=== PATIENT | female | born 1955 | race Caucasian/White ===

== ENCOUNTER → 2021-07-11 09:43 | Outpatient (CLI) | payer MEDICARE, OTHER, SELFPAY ==
--- NOTE | 2021-07-11 09:51 | DI.US.S_ITS ---
PROCEDURE: US ABD AORTA ANEURYSM SCREEN INDICATIONS: SCREENING TECHNIQUE: Real time scanning was performed of the aorta and iliac arteries, with image documentation. COMPARISON: None. FINDINGS: Aorta: Proximal aortic diameter measures 1.6 cm. Mid-aorta measures 1.2 cm. Distal aortic diameter is 1.2 cm. Iliac arteries: Right common iliac artery measures 0.8 cm. Left common iliac artery measures 0.8 cm. IMPRESSION: No abdominal aortic aneurysm. Dictated by: Michael Marshall M.D. on 07/11/2021 at 11:17 Approved by: Michael Marshall M.D. on 07/11/2021 at 11:18
--- NOTE | 2021-07-11 09:51 | DI.RAD.S_ITS ---
PROCEDURE: XR DEXA AXIAL SKELETON INDICATIONS: ROUTINE SCREENING,AAA,OSTENOPENIA COMPARISON: [facility], CR, DEXA AXIAL SKELETON, 08/31/2016, 15:23. FINDINGS: This blank DEXA report has been sent in error by the PACS system. The correct and complete report will be forthcoming in 1-2 days. Thank you for your patience and understanding. Dictated by: Carolynn Peña MD, PhD on 07/11/2021 at 16:25 Approved by: Carolynn Peña MD, PhD on 07/11/2021 at 16:25
--- NOTE | 2021-07-11 10:18 | DI.MG.S_ITS ---
Procedure: MM screening mammo BI BILATERAL DIGITAL SCREENING MAMMOGRAM 3D/2D WITH CAD: 07/11/2021 CLINICAL: Routine screening. No prior exams were available for comparison. There are scattered fibroglandular elements in both breasts. Current study was also evaluated with a Computer Aided Detection (CAD) system. There is an irregular equal density focal asymmetry in the left breast at 1 o'clock posterior depth. There is possible architectural distortion associated with the focal asymmetry. No other significant masses, calcifications, or other findings are seen in either breast. IMPRESSION: INCOMPLETE: NEEDS ADDITIONAL IMAGING EVALUATION The irregular equal density focal asymmetry in the left breast is indeterminate. Additional views with possible ultrasound are recommended. This exam was interpreted at Station ID: [id number]. NOTE: For mammograms, a report in lay terms will be sent to the patient. Approximately 15% of breast malignancies will not be visualized mammographically. In the management of a palpable breast mass, a negative mammogram must not discourage biopsy of a clinically suspicious lesion. Electronically Signed By: Jules Pink M.D. aty/:07/11/2021 11:01:52 letter sent: Additional Imaging Needed ACR BI-RADS Category 0: Incomplete 3340F Continued Report - Page 2 of 2 Patient Name: CAMI WHITLEY date: 1955 Sex: F Attending Physician: Storm Indications: Date: 07/11/2021 10:04 At the request of: MARY ELENA Procedure: MM screening mammo BI
== END ==
PROVIDERS: Family Provider Nurse Practitioner; PCP Nurse Practitioner Family; Referring Provider Nurse Practitioner Family; Visit Provider Nurse Practitioner Family
DX: Z13.6 Encounter for screening for cardiovascular disorders (principal); M85.852 Other specified disorders of bone density and structure, left thigh; Z78.0 Asymptomatic menopausal state
CPT/HCPCS: 76706; 77063; 77067; 77080

== ENCOUNTER → 2021-08-01 13:10 | Outpatient (CLI) | payer MEDICARE, OTHER, SELFPAY ==
--- NOTE | 2021-08-01 | DI.US.S_ITS ---
ULTRASOUND OF LEFT BREAST AND AXILLA: 08/01/2021 CLINICAL: Patient returns today to evaluate an asymmetry in the left breast. Comparison is made to exams dated: 08/01/2021 mammogram and 07/11/2021 mammogram - [facility]. Color flow and real-time ultrasound of the left breast axilla were performed. Carrillo scale images of the real-time examination were reviewed. There is a 0.8 cm x 0.8 cm x 0.7 cm irregular mass with angular margins in the left breast at 2 o'clock posterior depth 7 cm from the nipple. This irregular mass is hypoechoic with no posterior acoustic shadowing or enhancement. This correlates with mammography findings. Color flow imaging demonstrates that there is vascularity present. No significant abnormalities were seen sonographically in the left axilla. IMPRESSION: SUSPICIOUS OF MALIGNANCY The 0.8 cm x 0.8 cm x 0.7 cm irregular mass in the left breast 2 o'clock position is suspicious of malignancy. An ultrasound guided biopsy is recommended. Findings and recommendations were discussed with the patient by Dr. Machado during today's examination. This exam was interpreted at Station ID: [id number]. Electronically Signed By: Jules Pink M.D. aty/:08/01/2021 15:12:49 letter sent: Biopsy Required Ultrasound BI-RADS: 4 Suspicious for malignancy
--- NOTE | 2021-08-01 | DI.MG.S_ITS ---
UNILATERAL LEFT DIGITAL DIAGNOSTIC MAMMOGRAM 3D/2D WITH ADDITIONAL VIEWS: 08/01/2021 CLINICAL: Additional evaluation requested from prior study. Comparison is made to exam dated: 07/11/2021 [facility]. There are scattered fibroglandular elements in left breast. Redemonstration of previously described 0.7 cm irregular equal density focal asymmetry in the left breast at 1 o'clock posterior depth. This is confirmed in today's additional views. There is architectural distortion associated with the focal asymmetry. No other significant masses or calcifications are seen in the breast. IMPRESSION: INCOMPLETE: NEEDS ADDITIONAL IMAGING EVALUATION The 0.7 cm irregular equal density focal asymmetry in the left breast is indeterminate. An ultrasound is recommended for further evaluation and is scheduled to immediately follow this examination. This exam was interpreted at Station ID: [id number]. NOTE: For mammograms, a report in lay terms will be sent to the patient. Approximately 15% of breast malignancies will not be visualized mammographically. In the management of a palpable breast mass, a negative mammogram must not discourage biopsy of a clinically suspicious lesion. Electronically Signed By: Jules Pink M.D. aty/:08/01/2021 15:07:18 ACR BI-RADS Category 0: Incomplete 3340F
== END ==
PROVIDERS: Family Provider Nurse Practitioner; PCP Nurse Practitioner Family; Referring Provider Nurse Practitioner Family; Visit Provider Nurse Practitioner Family
DX: R92.8 Other abnormal and inconclusive findings on diagnostic imaging of breast (principal); N63.21 Unspecified lump in the left breast, upper outer quadrant
CPT/HCPCS: 76642; 77065; G0279

== ENCOUNTER → 2021-08-30 10:43 | Outpatient (CLI) | payer MEDICARE, OTHER, SELFPAY ==
--- NOTE | 2021-08-30 | PATH_ITS ---
[facility] Accession Number: [id number] No. of containers..01 Tissue . 01 Material submitted: . breast - LEFT BREAST MASS 2:00 7CMFN . 01 Clinical history: . LEFT BREAST CANCER . 02 Diagnosis: Left Breast Mass, 2 o'clock, 7 cm From Nipple, Needle Core Biopsies: Invasive ductal carcinoma; see Cancer Case Summary. . CANCER CASE SUMMARY - INVASIVE CARCINOMA OF THE BREAST Procedure: Needle biopsy. Specimen laterality: Left. Tumor Tumor site: 2 o'clock, 7 cm from nipple. Histologic type: Invasive carcinoma of no special type (ductal). Histologic grade ([place] histologic score): Tubular differentiation: Score 3. Nuclear pleomorphism: Score 2. Mitotic rate: Score 1. Overall grade: Grade 2. Tumor size: 6 mm in greatest linear extent. Ductal carcinoma in situ: Present. Architectural pattern: [place], cribriform. Nuclear grade: Grade 2. Necrosis: Present, central (expansive comedo necrosis). Lymphovascular invasion: Not identified. Microcalcifications: Not identified. . CAP BREAST BIOMARKER REPORTING TEMPLATE: . Estrogen Receptor (ER) Status: Positive. Average intensity of stainin%, strong. Primary antibody: SP1 Progesterone Receptor (PgR) Status: Positive. Average intensity of stainin%, intermediate. Primary antibody: 1E2 HER2 (by immunohistochemistry): Negative (1+). Primary antibody: 4B5 . Cold Ischemia and Fixation Times: Meets requirements in the latest version of the ASCO/CAP guidelines. Testing performed on Block Number: . TECHNICAL NOTE: The scoring criteria for breast biomarkers by immunohistochemistry is based on the current ASCO/CAP guidelines (Donna et al, Arch Pathol Lab Med 2010: 134(6): 907-922 / Reena Carbajal al, Arch Pathol Lab Med 2014: 138(2): 241-256). Deparaffinized sections of formalin fixed tissue (along with appropriate positive controls) are incubated with the above antibody(s). Using the automated Levan stainer, tissue is incubated with the designated antibody* which is then localized by a non-biotin, dual polymer detection system. The external controls are reviewed for appropriate reactivity and found to be adequate. Results on the target cell population are indicated above. These tests have not been validated on decalcified tissue. * This test was developed and its performance characteristics determined by [facility]. It has not been cleared or approved by the U.S. Food and Drug Administration. The FDA has determined that such clearance or approval is not necessary. This test is used for clinical purposes. It should not be regarded as investigational or for research. [facility] 09/01/2021 1807 Local . 02 Comment: As part of routine quality head, Dr. 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 The finding of invasive adenocarcinoma and DCIS was discussed between LESLIE Michelle, and Dr. Crow on 09/01/2021. . 02 Electronically signed: . Gurjit Crow MD, PhD, Pathologist NPI- [id number] . 01 Gross description: . Received one formalin-filled container, labeled with the patient's name and labeled left breast 2 o'clock. The specimen is received with a plastic filter in container, sample loose in container and consists of multiple yellow-hoskins pieces of soft tissue which range in size from 0.2 x 0.1 x 0.1 cm to 1.2 x 0.4 x 0.4 cm. All fragments are totally submitted in one cassette. Possible collection date and time per requisition: 08/30/21 at 11:44. Total fixation time: Approximately 13 hours. ([id number]) /FRR 08/31/2021 0400 Local . 02 Pathologist provided ICD-10: C50.912 . 02 CPT . 038191, 586704, 533387, 600304 Specimen Comment: A courtesy copy of this report has been sent to [facility] Pathology Performed at: 01 [facility] [address] [place] [address] [facility] [place] [place] [id number] MD Romel Yanes MD Phone: [phone] Performed at: 02 [facility] [address] [place] [id number] MD Celine Talbot MD Phone: [phone]
--- NOTE | 2021-08-30 | DI.MG.S_ITS ---
UNILATERAL LEFT DIGITAL DIAGNOSTIC MAMMOGRAM 3D/2D: 08/30/2021 CLINICAL: Left breast cancer. Post clip placement. Comparison is made to exams dated: 08/30/2021 ultrasound biopsy, 08/01/2021 mammogram, and 07/11/2021 mammogram - [facility]. There are scattered fibroglandular elements in left breast. There is a marker clip in the appropriate position in the left breast at 1 o'clock posterior depth. This marker clip placement is at the biopsy site. IMPRESSION: POST PROCEDURE MAMMOGRAM FOR MARKER PLACEMENT There was a successful marker clip placement in the left breast posterior depth. This exam was interpreted at Station ID: [id number]. NOTE: For mammograms, a report in lay terms will be sent to the patient. Approximately 15% of breast malignancies will not be visualized mammographically. In the management of a palpable breast mass, a negative mammogram must not discourage biopsy of a clinically suspicious lesion. Electronically Signed By: Xi graham/madonna:08/30/2021 12:06:44 ACR BI-RADS Category Post-procedure mammogram for marker placement
--- NOTE | 2021-08-30 | DI.US.S_ITS ---
PROCEDURE: US BX BREAST PERC W VAC DEVICE COMPARISON: None. INDICATIONS: LEFT BREAST CANCER FINDINGS: IMPRESSION: Dictated by: Xi Bermudez M.D. on 08/30/2021 at 17:14 Approved by: Xi Bermudez M.D. on 08/30/2021 at 17:14
--- NOTE | 2021-08-30 11:04 | DI.US.S_ITS ---
At the request of: MARY ELENA Procedure: US bx breast perc w vac device ULTRASOUND GUIDED BIOPSY LEFT BREAST USING VACUUM DEVICE WITH MARKING DEVICE INSERTED: 08/30/2021 CLINICAL: Left breast mass. PATIENT CONSENT: Risks (minor bleeding, infection, vasovagal reaction and repeat procedure), benefits and alternatives were explained to the patient and written informed consent was obtained. Correlation is made to exams dated: 08/01/2021 ultrasound, 08/01/2021 mammogram, and 07/11/2021 mammogram - [facility]. An ultrasound guided biopsy using real-time ultrasound was performed for the irregular shaped mass located in the left breast at 2 o'clock posterior depth. The skin was prepped in the usual manner. Local anesthetic was administered to the access site. A small incision was made in the breast. The abnormality was approached from the lateral aspect. A 10 gauge biopsy needle was placed adjacent to the abnormality under ultrasound guidance. Once the needle was documented to be in the correct location, five specimens were obtained using the Mammotome biopsy system. The patient received additional local anesthetic during the procedure. A clip was inserted into the biopsy cavity. A sterile dressing was applied to the access site. The specimens were sent to the laboratory for pathological analysis. IMPRESSION: ULTRASOUND GUIDED BIOPSY MALIGNANT Ultrasound guided biopsy of the mass in the left breast at 2 o'clock posterior depth was successful. 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 Pathology results are concordant with imaging findings. A surgical/oncologic consultation is recommended. This exam was interpreted at Station ID: [id number]. Xi graham,aty/:09/07/2021 07:35:53 Continued Report - Page 2 of 2 Patient Name: CAMI WHITLEY date: 1955 Sex: F Attending Physician: Storm Indications: Date: 08/30/2021 11:41 At the request of: MARY ELENA Procedure: US bx breast perc w vac device
== END ==
PROVIDERS: Family Provider Nurse Practitioner; PCP Nurse Practitioner Family; Referring Provider Nurse Practitioner Family; Visit Provider Nurse Practitioner Family
DX: C50.412 Malignant neoplasm of upper-outer quadrant of left female breast (principal); Z17.0 Estrogen receptor positive status [ER+]
CPT/HCPCS: 19083; 77065

== ENCOUNTER 2022-06-07 09:29 | Day surgery (SDC) | payer MEDICARE, OTHER, SELFPAY ==
[2022-06-07] VITALS (7 sets, daily range): BP systolic 72–110; BP diastolic 29–65; PULSE 53–63; RESP 12–18; TEMP 36.2–36.6; O2SAT 96–99; BMI 25.0
[2022-06-07] MEDS: LACTATED RINGERS 1,000 ML 42 ML IV ×2 (10:09→12:04)
--- NOTE | 2022-06-07 10:43 | PM.HP.1 ---
History of Present Illness History of Present Illness Date Patient Seen: 06/07/22 Time Patient Seen: 10:43 Chief complaint: SCREENING COLONOSCOPY Narrative: Last colonoscopy was over 5 years, but she has had 2 in the past. No symptoms, no family history. Patient History Family & Social History Social History: household members spouse Tobacco & Substance use: Smoking Status Never smoker alcohol intake never Substance Use Type marijuana Meds Home Medications and Allergies Home Medications Medication Instructions Recorded Confirmed Type sodium,potassium,mag sulfates 17.5 See Rx Instructions PO .COMPLEX 06/01/22 Rx gram-3.13 gram-1.6 gram oral soln #354 mL (Suprep Bowel Prep Kit) Allergies Allergy/AdvReac Type Severity Reaction Status Date / Time CAT DANDER Allergy Mild Uncoded 06/07/22 09:56 DOG DANDER Allergy Mild Uncoded 06/07/22 09:56 DUST Allergy Mild Uncoded 06/07/22 09:56 Review of Systems Review of Systems ROS: Yes All systems reviewed with the patient and are negative except as otherwise documented Exam Vital Signs (past 8 hours): - 06/07/22 09:58 Temperature 97.8 F Pulse Rate 63 Respiratory Rate 18 Blood Pressure 110/65 Pulse Oximetry 98 Oxygen Delivery Method Room Air Oxygen Delivery Method Room Air Const General: cooperative and healthy appearing HENKY Head: normal to inspection, normocephalic and atraumatic Eyes General: appearance normal, both eyes and all related structures Neck Neck: trachea midline Chest Chest: normal inspection of the chest Resp Effort & Inspection: normal respiratory effort and able to speak in complete sentences Cardio Rate: regular rate Rhythm: regular rhythm GI Palpation: soft Skin General: turgor normal Neuro General: patient alert, patient awake and patient oriented x3 Cognition: normal cognition Speech: speech normal Psych Appearance: grossly normal Mental Status: mental status grossly normal Attitude: cooperative Judgment: judgment good Assessment & Plan Assessment & Plan narrative: colon cancer screening with a h/o colon polyp over 10 years ago. Plan: colonoscopy with MAC COVID-19 COVID-19 status: Negative Time Spent With Patient Time with patient: less than 30 minutes Critical Care time: I spent a total of [] minutes of critical care time on this patient's care today; this time is exclusive of procedural time.
--- NOTE | 2022-06-07 10:52 | PM.OP.COLON ---
Operative Date/Time/Diagnoses Date of procedure: 06/07/22 Time of procedure: 10:52 Pre-op diagnosis: colon cancer screening Post-op diagnosis: same Procedure & Clinicians Study performed: colonoscopy w MAC Same procedure as scheduled: Yes Indications: H/o colon polyp, colon cancer screening Surgeon: Marlene Gan Procedure Notes Procedure in detail: Preop diagnosis: History of colon polyp, colon cancer screening Postop diagnosis: Same Operative procedure: Colonoscopy with MAC Surgeon: Kelsey Gan MD Findings: Mild scant small diverticuli of the descending colon. No polyps Procedure: Patient placed in a lateral position. Rectal exam performed showing slight decreased tone no masses. Colonoscope inserted in the rectum advanced to ileocecal valve with minimal difficulty. Insufflation and extraction of the scope and the above findings including a retroflex in the rectum. Impression: Small scant diverticula in the descending colon, no polyps. Plan: Repeat colonoscopy in 10 years Findings: divertiulosis Specimen(s): none sent Complications: none Post-procedure Recommendations: Colonoscopy in 10 years Follow up: as needed Disposition: PACU
== END 2022-06-07 12:15 | disposition home or self-care (01) ==
PROVIDERS: Family Provider Nurse Practitioner; PCP Nurse Practitioner Family; Referring Provider Surgery; Visit Provider Surgery
PROC: 0DJD8ZZ Inspection of Lower Intestinal Tract, Via Natural or Artificial Opening Endoscopic (ICD-10-PCS; CPT 45378; principal; 2022-06-07 10:45)
DX: Z12.11 Encounter for screening for malignant neoplasm of colon (principal); Z86.010 Personal history of colon polyps; K57.30 Diverticulosis of large intestine without perforation or abscess without bleeding
CPT/HCPCS: G0105